=== PATIENT | male | born 1955 | race Hispanic/Latino ===

== ENCOUNTER 2024-12-26 18:04 | Emergency (ER) | payer OTHER ==
[~2024-12-26] VITALS: Ht 172.7 cm; Wt 78.0 kg
[2024-12-26 18:21] VITALS: BP 142/80; PULSE 80; RESP 16; TEMP 98.4; O2SAT 98
--- NOTE | 2024-12-26 18:53 | HMCIMG ---
FOOT COMP 3+VWS LT HISTORY: Pain COMPARISON: None TECHNIQUE: 3 images of the left foot were obtained. FINDINGS: There is no acute displaced fracture or dislocation. IMPRESSION: 1. Findings as described above.
[2024-12-26] MEDS: sulfaMETHOX-TMP DS 800/160 TAB PO ONE (18:54)
--- NOTE | 2024-12-26 18:56 | ERN ---
ED Note History of Present Illness Stated Complaint: FOOT INJURY Chief Complaint: FOOT INJURY/PAIN Time Seen by MD: 18:09 Time Seen by Midlevel: 18:10 Dictation: 69-year-old male who presents to the emergency department due to reported having pain to the left foot after have sustained a small puncture wound with the prickly object approximately 10 days ago. He states that he was initially placed on cephalexin and then switch to Augmentin 3 days ago. At this time, she rates his discomfort as a 2/10. Patient denies having any fever or chills associated with this. He states that he says that he has a mild throbbing sensation and denies any drainage to the affected area. Patient states that this is primarily upon bearing weight. Upon initial evaluation, the patient presents in no acute distress. Allergies: Coded Allergies: No Known Drug Allergies (Unverified Allergy, Unknown, 12/26/24) Emergency Care PLUMBER'S HELPER: None Past Medical History Past Medical History: Diabetes-Type II, Hypertension Surgical History: Other Surgical History Other: PROSTATE SURGERY, HERNIA REPAIR RN Note Reviewed/Agreed w/PFSH: Yes Review of System Dictation Constitutional: Negative for fever,chills, and weight loss Eyes: Negative for injury, pain,redness, and discharge ENT: Negative for injury,pain or swelling Cardiovascular: Negative for chest pain, palpitations, and edema Respiratory: Negative for shortness of breath, cough, and wheezing, Abdomen/GI: Negative for abdominal pain, nausea, vomiting, diarrhea, and constipation Back: Negative for injury and pain : Negative for injury, bleeding and discharge MS/Extremity: Pain left foot Skin: Negative for rash, and discoloration Neuro: Negative for headache, weakness, numbness, tingling, and seizure Psych: Negative for suicide ideation, homicidal ideation, and hallucinations Initial Vital Sign VS Vital Signs Date Time Temp Pulse Resp B/P (MAP) Pulse Ox O2 Delivery O2 Flow Rate FiO2 12/26/24 18:08 98.4 83 16 145/84 97 Room Air 12/26/24 18:21 0 21 Physical Exam Dictation General: awake, alert, NAD Head/Face: Normocephalic, atraumatic Eyes: PERRL, EOMI ENT: Oral mucosa moist Neck: Trachea midline, supple Cardiovascular: RRR, no edema Respiratory: Symmetrical, non-labored Abdomen: Soft, non-tender, non-distended, no guarding. Skin: Warm, dry, good turgor, no rash MS/Extremity: Mild area of tenderness with a callus type of formation noted to the ball of the foot Neuro: COAx4, GCS 15, steady gait, Psych: Normal behavior, mood, and affect normal Results (Laboratory/Radiology) X-RAY Comment: Three-view x-ray of the left foot with no cortical anomalies or radiopaque foreign objects as interpreted by me. ED Course ED Course Orders Procedure Category Date Status Time Foot Comp 3+Vws Lt RAD 12/26/24 Resulted 18:24 Sulfamethox-Tmp Ds PHA 12/26/24 Complete 800/160 Tab (Bactrim 19:00 Current Medications Medications (Trade) Dose Ordered Sig/Lady Route PRN Reason Start Time Stop Time Status Last Admin Dose Admin Trimethoprim/ Sulfamethoxazole (BactRIM DS) 1 tab ONCE ONCE PO 12/26/24 19:00 12/26/24 19:01 DC 12/26/24 18:54 Vital Signs Date Time Temp Pulse Resp B/P (MAP) Pulse Ox O2 Delivery O2 Flow Rate FiO2 12/26/24 18:21 98.4 80 16 142/80 98 Room Air* 0 21 12/26/24 18:08 98.4 83 16 145/84 97 Room Air Medical Decision Making MDM MDM: Differential diagnosis: Infected puncture wound, cellulitis, foreign body retained. Rationale: Tests considered and ordered secondary to shared decision making include: Previous outside records reviewed: Old ER visits. Risk of complication and/or morbidity or mortality of patient management: None Medications-Per medication reconciliation Need for hospitalization: Patient does not meet criteria for hospitalization. Need for emergency major/minor surgery: No There are no social concerns with this patient. Prescription drug management Prescriptions will include symptomatic care Patient's prior external medical records from other ER visits were reviewed by me as indicated. Prior testing and results from previous visits were reviewed. Prior tests were taken into account with medical decision making and resource utilization, independent historian/historians were used to obtain complete medical history. I independently interpreted the test that were performed, results were reviewed by me and considered findings on radiology if ordered. Medical management and examination interpretation discussions were had by me with other qualified healthcare professionals as indicated for the patient's care. DX & DISP Disposition: Discharge Departure Impression: Primary Impression: Infected puncture wound of plantar aspect of foot Condition: Stable Scripts Mupirocin Calcium (Mupirocin) 2 % Cream..g. 1 APPL TP TID for 10 Days, #30 GM 0 Refills Prov: JESS KELLOGG 12/26/24 Sulfamethoxazole/Trimethoprim (Bactrim Ds Tablet) 800 Mg-160 Mg Tablet 1 TAB PO BID for 10 Days, #14 TAB 0 Refills Prov: JESS KELLOGG 12/26/24 Referrals: SELF,REFERRAL (PCP) JESS KELLOGG December 26, 2024 18:56
[2024-12-26] MEDS ORDERED: SULF1TAB42 PO (19:11)
[2024-12-26] MEDS ORDERED: MUPI15CR12 TP (19:11)
== END 2024-12-26 19:18 | disposition home or self-care (01) ==
LOC: EDH 18:04
DX: L08.89 Other specified local infections of the skin and subcutaneous tissue (principal); E11.9 Type 2 diabetes mellitus without complications; I10 Essential (primary) hypertension; Z98.890 Other specified postprocedural states
CPT/HCPCS: 73630; 99283